=== PATIENT | female | born 1945 | race Caucasian/White ===

== ENCOUNTER 2017-12-26 09:56 | Emergency (ER) | payer MEDICARE, OTHER ==
[2017-12-26 09:56] VITALS: BMI 25.2
[2017-12-26 10:05] VITALS: BP 167/74; PULSE 69; RESP 18; TEMP 98.2; O2SAT 96
--- NOTE | 2017-12-26 10:40 | C.PDOC ---
History Of Present Illness <Tricia Dayperla Mariah - Last Filed: 12/26/17 11:13> <Vincenzo Sheridan DO - Last Filed: 12/26/17 18:02> CC: Right mid-back pain Patient is a 72 year old female with past medical history of anxiety, Arthritis, Gastritis, HTN, Kidney Stones, Migraine, who presents to the ED with complaints of right mid-back pain after she suffered a fall while going down the stairs to go grab her mails. Patient states that she took tramadol and motrin after the incident, which provided relief. Patient denies any other injury after the fall such as head injury. Patient was oriented to person, place and time post fall. (Shayne Day) History Per: Patient History/Exam Limitations: no limitations Onset/Duration Of Symptoms: Hrs Current Symptoms Are (Timing): Still Present Severity: Moderate Pain Scale Rating Of: 6 Location: Right mid-back pain Quality: Achy Additional History Per: Patient <Tricia Dayperla Mariah - Last Filed: 12/26/17 11:13> <Vincenzo Sheridan DO - Last Filed: 12/26/17 18:02> Time Seen by Provider: 12/26/17 10:10 Chief Complaint (Nursing): Back Pain Past Medical History - Medical History PMH: Anxiety, Arthritis, Gastritis, Gall Bladder Disease, HTN, Kidney Stones, Migraine, Chronic Kidney Disease Surgical History: Appendectomy, Cholecystectomy Family History: States: No Known Family Hx - Social History Hx Tobacco Use: No Hx Alcohol Use: No Hx Substance Use: No <ShayTriciaperla Lemus - Last Filed: 12/26/17 11:13> Vital Signs: Last Vital Signs Temp 98.2 F 12/26/17 10:06 Pulse 69 12/26/17 10:06 Resp 18 12/26/17 10:06 BP 167/74 H 12/26/17 10:06 Pulse Ox 96 12/26/17 11:20 - [facility] Procedures CYSTOSCOPY NEC (12/19/13) INJECT/INFUSE NEC (03/14/13) LAPAROSCOPIC CHOLECYSTECTOMY (07/20/14) OTHER LOCAL DESTRUC SKIN (03/17/13) OTHER SKIN & SUBQ I D (03/17/13) URETERAL CATHETERIZATION (12/19/13) URETHRAL DILATION (11/10/13) Review Of Systems Constitutional: Negative for: Fever, Chills, Weakness Eyes: Negative for: Pain, Vision Change ENT: Negative for: Ear Pain Cardiovascular: Negative for: Chest Pain, Palpitations, Orthopnea Respiratory: Negative for: Shortness of Breath Gastrointestinal: Negative for: Nausea, Vomiting, Abdominal Pain Genitourinary: Negative for: Dysuria, Frequency, Hematuria Musculoskeletal: Positive for: Back Pain. Negative for: Neck Pain, Shoulder Pain, Arm Pain Neurological: Negative for: Weakness, Numbness, Confusion, Dizziness <Shayne Day - Last Filed: 12/26/17 11:13> Physical Exam - Physical Exam Appears: Well Skin: Normal Color Head: Atraumatic, Normacephalic, No Tenderness, No Swelling, No Abrasion, No Laceration Eye(s): bilateral: Normal Inspection, EOMI Oral Mucosa: Moist Neck: Normal, Normal ROM Cardiovascular: Rhythm Regular Respiratory: Normal Breath Sounds Gastrointestinal/Abdominal: Normal Exam, Bowel Sounds, Soft, No Tenderness Back: No CVA Tenderness ( T5-T9 paraspinal tenderness ), Muscle Spasm, Paraspinal Tenderness, No Straight Leg Raising, Other (T7- T11) Extremity: Normal ROM, No Tenderness, No Pedal Edema, No Calf Tenderness Extremity: Bilateral: Atraumatic Neurological/Psych: Oriented x3, Normal Speech, Normal Cognition, Normal Cranial Nerves, Normal Sensation <Shayne Day - Last Filed: 12/26/17 11:13> ED Course And Treatment O2 Sat by Pulse Oximetry: 96 <Shayne Day - Last Filed: 12/26/17 11:13> Medical Decision Making <Shayne Day - Last Filed: 12/26/17 11:13> <Vincenzo Sheridan DO - Last Filed: 12/26/17 18:02> Medical Decision Making: Right Lumbar Spine X-ray: No acute fracture, spondylolysis or spondylolisthesis. Multilevel degenerative disc disease, worse at L5-S1.There is normal alignment of the lumbar vertebral bodies. There is normal lumbar lordosis. There is no acute fracture, spondylolysis or spondylolisthesis. There is diffuse bone demineralization. There is mild multilevel degenerative disc disease with anterior osteophytes, reduced disc heights and multilevel facet arthropathy, worse at L5-S1. Right Hip/Pelvis X-ray: The pelvic ring is intact. There is no acute displaced fracture or bone destruction. Bone alignment is normal. There is diffuse bone demineralization. There is mild degenerative osteoarthrosis in the sacroiliac joints. There are multiple phleboliths in the pelvis. No acute displaced fracture or dislocation. Please note occult fractures cannot be excluded on plain radiographs. If there is a persistent clinical concern, an MRI of the hip may be performed for further evaluation. (Shayne Day) Disposition Discussed With : Vincenzo Sheridan DO - Disposition Disposition Time: 11:15 <Shayne Day - Last Filed: 12/26/17 11:13> - Disposition Disposition Time: 11:05 <Vincenzo Sheridan DO - Last Filed: 12/26/17 18:02> - Disposition Referrals: [facility] Ronn Garber, [Non-Staff] - Disposition: HOME/ ROUTINE Condition: GOOD Additional Instructions: Please follow up with your PMD, Dr. Bond within a week Instructions: Low Back Pain in Adults Forms: [facility] (Slovak), General Discharge Instructions - Clinical Impression Clinical Impression: Low back strain, Lumbar sprain, Low back pain - PA / POWER HAMMER OPERATOR / Resident Statement DIOGO has reviewed & agrees with the documentation as recorded. DIOGO has examined the patient and agrees with the treatment plan. <Vincenzo Sheridan DO - Last Filed: 12/26/17 18:02>
--- NOTE | 2017-12-26 11:05 | RAD ---
Date of service: 12/26/2017 PROCEDURE: Radiographs of the Lumbar Spine. HISTORY: Status post fall COMPARISON: No prior. FINDINGS: BONES: There is normal alignment of the lumbar vertebral bodies. There is normal lumbar lordosis. There is no acute fracture, spondylolysis or spondylolisthesis. There is diffuse bone demineralization. DISC SPACES: There is mild multilevel degenerative disc disease with anterior osteophytes, reduced disc heights and multilevel facet arthropathy, worse at L5-S1. OTHER FINDINGS: There are atherosclerotic calcifications in the abdominal aorta. There are no pathologic soft tissue calcifications. Both sacroiliac joints are normal. IMPRESSION: No acute fracture, spondylolysis or spondylolisthesis. Multilevel degenerative disc disease, worse at L5-S1.
--- NOTE | 2017-12-26 11:06 | RAD ---
PROCEDURE: Right Hip Radiographs. HISTORY: Status post fall, R/O fracture COMPARISON: None. FINDINGS: BONES: The pelvic ring is intact. There is no acute displaced fracture or bone destruction. Bone alignment is normal. There is diffuse bone demineralization. JOINTS: The hip joint spaces are preserved. SOFT TISSUES: Normal. OTHER FINDINGS: There is mild degenerative osteoarthrosis in the sacroiliac joints. There are multiple phleboliths in the pelvis. IMPRESSION: No acute displaced fracture or dislocation. Please note occult fractures cannot be excluded on plain radiographs. If there is a persistent clinical concern, an MRI of the hip may be performed for further evaluation.
== END 2017-12-26 11:19 | disposition home or self-care (01) ==
LOC: C.ER 09:56
DX: S33.5XXA Sprain of ligaments of lumbar spine, initial encounter (principal); S39.012A Strain of muscle, fascia and tendon of lower back, initial encounter; W10.9XXA Fall (on) (from) unspecified stairs and steps, initial encounter; M54.5 Low back pain; I12.9 Hypertensive chronic kidney disease with stage 1 through stage 4 chronic kidney disease, or unspecified chronic kidney disease; N18.9 Chronic kidney disease, unspecified

== ENCOUNTER 2018-03-12 07:55 | Day surgery (SDC) | payer MEDICARE, OTHER ==
[2018-03-08 08:24] VITALS: BMI 22.1
[2018-03-12] MEDS ORDERED: Absorbable Gelatin Sponge Size 12-7 ONE (09:37)
[2018-03-12] MEDS ORDERED: Midazolam 2 MG/2 ML VIAL ONE (10:10)
[2018-03-12] MEDS ORDERED: Propofol 10 mg/ml Inj (20 ML) ONE (10:10)
--- NOTE | 2018-03-12 10:37 | CP.SDSHP ---
Same Day Surgery H & P - History Proposed Procedure: CT guided pelvic mass biopsy Pre-Op Diagnosis: Left pelvic mass, lymphadenopathy - Allergies Allergies: Allergies Gadolinium-Containing Contrast Medi Allergy (Severe, Verified 12/26/17 10:09) ANAPHYLAXIS Iodinated Contrast- Oral and IV Dye [Iodinated Contrast Media - IV Dye] Allergy (Severe, Verified 12/26/17 10:09) ANAPHYLAXIS - Physical Exam Mental Status: Alert & Oriented x3 - Impression Impression: Ct showed a large mass along the left iliac. Plan CT guided biopsy. Informed consent obtained. Pt. Evaluated Today:Candidate for Anesthesia & Procedure: Yes (ASA 3 Malampati 3) - Date & Time Date: 03/12/18 Time: 10:00 Short Stay Discharge - Short Stay Discharge Admitting Diagnosis/Reason for Visit: DX:R59.0 Disposition: HOME/ ROUTINE
--- NOTE | 2018-03-12 10:41 | PCM.SURG1 ---
Surgeon's Initial Post Op Note - Surgeon's Notes Surgeon: Octavio Cavazos MD Plant Pathology Teacher: None Type of Anesthesia: IV Sedation Pre-Operative Diagnosis: pelvic mass Operative Findings: CT showed a large left pelvic mass Post-Operative Diagnosis: pelvic mass Operation Performed: CT guided core biopdy of left pelvic mass. Specimen/Specimens Removed: 18 g core x4 Estimated Blood Loss: EBL {In ML}: 2 Blood Products Given: N/A Drains Used: No Drains Post-Op Condition: Good Date of Surgery/Procedure: 03/12/18 Time of Surgery/Procedure: 10:35
--- NOTE | 2018-03-12 12:36 | CT ---
PROCEDURE: < Date of procedure: 03/12/2018 Procedure: 1. CT-guided biopsy of left pelvic mass. 2. CT guidance for procedure, [address] Radiation: 375.55 MGy-cm Medications: The patient sedated by the anesthesiologist with IV sedation, 1 percent lidocaine HISTORY: Patient with enlarged left pelvic mass. TECHNIQUE: Following informed consent and procedure time-out, the patient was placed supine e on the CT table and noncontrast CT scan was performed. The non contrast CT scan confirmed the large mass along the left iliac. A skin localizer was placed on patient's lower abdomen and repeat CT scan performed. Her abdomen was marked, prepped, and draped in the usual sterile fashion. After the patient was sedated by the anesthesiologist and the skin anesthetized with 1% lidocaine, an 18 gauge core biopsy needle was advanced percutaneously under CT guidance towards large mass. Once the needle was confirmed to be within the lymph node, multiple core biopsy specimens were obtained and sent for routine pathology. The specimen was also sent for flow cytometry. A post biopsy CT scan showed no hematoma. IMPRESSION: CT-guided biopsy core biopsy of left pelvic mass. There were no immediate complications.
[2018-03-12 13:09] VITALS: RESP 17; TEMP 97.9
[2018-03-12 13:15] VITALS: BP 117/58; PULSE 64; O2SAT 98
== END 2018-03-12 12:15 | disposition home or self-care (01) ==
LOC: C.SPRAD 07:55
PROVIDERS: ATTEND Radiology Vascular & Interventional Radiology
DX: R14.0 Abdominal distension (gaseous) (principal)
CPT/HCPCS: 49180; 88305; J2250; J3010

== ENCOUNTER 2018-04-12 12:14 | Observation (INO) | payer MEDICARE, OTHER ==
[2018-04-12 12:24] VITALS: BMI 23.6
[2018-04-12 14:00] LABS: BASO % 0.3 % (0.0-2.0); EOS # 0.1 K/uL (0.0-0.7); EOS % 0.9 % (0.0-4.0); HEMOGLOBIN 7.3 g/dL (11.0-16.0); LYMPH # 1.4 K/uL (1.0-4.3); LYMPH % 15.3 % (20.0-40.0); MEAN CELL VOLUME 77.7 fL (81.0-99.0); MEAN CORPUSCULAR HEMOGLOBIN 24.9 pg (27.0-31.0); MONO # 0.6 K/uL (0.0-0.8); MONO % 6.9 % (0.0-10.0); NEUT % 76.6 % (50.0-75.0); NRBC % 0.1 % (0.0-2.0); RBC 2.95 Mil/uL (3.80-5.20); RED CELL DISTRIBUTION WIDTH 16.3 % (11.5-14.5); WHITE BLOOD COUNT 9.2 K/uL (4.8-10.8)
--- NOTE | 2018-04-12 14:00 | RAD ---
Date of service: 04/12/2018 HISTORY: SOB COMPARISON: Comparison chest 04/11/2018.. FINDINGS: LUNGS: Poor inspiration with low lung volumes, crowded bronchovascular markings and mild bibasilar atelectasis. Redemonstrated is a calcified granuloma right mid-lower lung field unchanged.. PLEURA: No significant pleural effusion identified, no pneumothorax apparent. CARDIOVASCULAR: Minor aortic atherosclerotic calcification present. Cardiomegaly. No pulmonary vascular congestion. OSSEOUS STRUCTURES: No significant abnormalities. VISUALIZED UPPER ABDOMEN: Normal. OTHER FINDINGS: None. IMPRESSION: Poor inspiration with low lung volumes, crowded bronchovascular markings and mild bibasilar atelectasis. Redemonstrated is a calcified granuloma right mid-lower lung field unchanged..
[2018-04-12 14:04] LABS: ALB/GLOB RATIO 0.8 (1.0-2.1); ALBUMIN 3.6 g/dL (3.5-5.0); ALT/SGPT 12 U/L (9-52); AST/SGOT 15 U/L (14-36); BLOOD UREA NITROGEN 20 mg/dL (7-17); CALCIUM 8.9 mg/dl (8.6-10.4); GFR NON-AFRICAN AMERICAN > 60
[2018-04-12 14:08] LABS: INR 1.4; PROTHROMBIN TIME 15.4 SECONDS (9.7-12.2)
[2018-04-12 14:09] LABS: B-TYPE NATRIURETIC PEPTIDE 561 pg/mL (0-900)
--- NOTE | 2018-04-12 14:19 | C.PDOC ---
History Of Present Illness 72 y/o female referred to the ED by Dr. Bond for abnormal outpatient labs showing hemoglobin of 7.4. Patient has underlying cancer with acute on chronic anemia. Dr. Bond requesting blood transfusions, [address] Todd and Dr. Ileana bucio following patient. No other complaints offered at this time. Time Seen by Provider: 04/12/18 13:07 Chief Complaint (Nursing): Abnormal Labs History Per: Patient History/Exam Limitations: no limitations Additional History Per: Prior Records Past Medical History Reviewed: Historical Data, Nursing Documentation, Vital Signs Vital Signs: Last Vital Signs Temp 98.6 F 04/12/18 12:25 Pulse 97 H 04/12/18 12:25 Resp 16 04/12/18 12:25 BP 144/75 04/12/18 12:25 Pulse Ox 95 04/12/18 12:25 - Medical History PMH: Anemia, Anxiety, Arthritis, Gastritis, Gall Bladder Disease, HTN, Kidney Stones, Migraine, Chronic Kidney Disease Surgical History: Appendectomy, Cholecystectomy, Endoscopy - [facility] Procedures CYSTOSCOPY NEC (12/19/13) INJECT/INFUSE NEC (03/14/13) LAPAROSCOPIC CHOLECYSTECTOMY (07/20/14) OTHER LOCAL DESTRUC SKIN (03/17/13) OTHER SKIN & SUBQ I D (03/17/13) URETERAL CATHETERIZATION (12/19/13) URETHRAL DILATION (11/10/13) Family History: States: No Known Family Hx - Social History Hx Tobacco Use: No Hx Alcohol Use: No Hx Substance Use: No - Immunization History Hx Tetanus Toxoid Vaccination: No Hx Influenza Vaccination: No Hx Pneumococcal Vaccination: No Review Of Systems Constitutional: Negative for: Fever, Chills Cardiovascular: Negative for: Chest Pain Respiratory: Negative for: Shortness of Breath Neurological: Negative for: Headache Physical Exam - Physical Exam Appears: Non-toxic, No Acute Distress Skin: Dry, Pale Head: Atraumatic, Normacephalic Eye(s): bilateral: PERRL, EOMI, Conjunctiva Pale Nose: Normal Neck: Normal ROM Chest: Symmetrical Cardiovascular: Rhythm Regular, No Murmur Respiratory: Normal Breath Sounds, No Rales, No Rhonchi, No Wheezing Gastrointestinal/Abdominal: Soft, No Tenderness, No Distention Rectal: Normal Exam (+ normal appearing stool, no gross blood) Back: Normal Inspection Extremity: Bilateral: Atraumatic, Normal Color And Temperature, Normal ROM Neurological/Psych: Oriented x3 ED Course And Treatment - Laboratory Results Result Diagrams: 04/12/18 13:43 04/12/18 13:43 Lab Interpretation: Abnormal ECG: Interpreted By Me ECG Rhythm: Sinus Rhythm ECG Interpretation: Normal O2 Sat by Pulse Oximetry: 95 Pulse Ox Interpretation: Normal - Radiology CXR: Interpreted by Me CXR Interpretation: Yes: No Acute Disease Reevaluation Time: 14:47 Reassessment Condition: Unchanged - Physician Consult Information Outcome Of Conversation: 1430: d/w Dr. Liu- HOspitalist covering pt's for Dr. Spencer Bond ok to admit. Medical Decision Making Medical Decision Making: Initial Plan: --EKG --Repeat labs --Chest x-ray --Urinalysis --Occult stool Impression: acute on chronic anemia hgb 7.3 for blood tx overnight per Dr. Bond- PMD- Disposition Doctor Will See Patient In The: Hospital Counseled Patient/Family Regarding: Studies Performed, Diagnosis - Disposition Disposition: HOSPITALIZED Disposition Time: 14:48 Condition: GOOD - Clinical Impression Clinical Impression: Anemia - Scribe Statement The provider has reviewed the documentation as recorded by the Beatriz Hameed Provider Attestation: All medical record entries made by the Beatriz were at my direction and personally dictated by me. I have reviewed the chart and agree that the record accurately reflects my personal performance of the history, physical exam, medical decision making, and the department course for this patient. I have also personally directed, reviewed, and agree with the discharge instructions and disposition.
[2018-04-12 14:22] LABS: SQUAMOUS EPITHIAL 4 /hpf (0-5); URINE BACTERIA OCC (<OCC); URINE BILIRUBIN NEGATIVE (NEGATIVE); URINE BLOOD NEGATIVE (NEGATIVE); URINE CLARITY Hazy (Clear); URINE COLOR Yellow (YELLOW); URINE GLUCOSE (UA) NORMAL (Normal); URINE LEUKOCYTE ESTERASE 2+ Leu/uL (Negative); URINE PROTEIN 1+ mg/dL (NEGATIVE)
[2018-04-12 16:04] VITALS: RESP 20
[2018-04-12] MEDS ORDERED: Tramadol 25 mg PO PRN ×2 (16:14→16:45)
--- NOTE | 2018-04-12 16:19 | CP.PCM.HP ---
History of Present Illness - History of Present Illness History of Present Illness: PGY-1 History and Physical for Dr. Liu's service CC: "Doctor sent me" HPI: Patient is 72 year old female with PMH of CKD, anxiety, migraine, gastritis, HTN, kidney stones, skin cancer was admitted to [facility] for anemia. Patient was referred to [facility] after she visited Dr. Bond for blood work with Hgb of 7.3. Dr. Bond wanted the patient to come to hospital to receive blood transfusion. Patient is pending placement of portacath for treatment of her Hodgkin's lymphoma by Dr. Todd. Patient denies any fever, chest pain, shortness of breath, n/v, diarrhea, hemoptysis, hematuria, hematochezia/melena or dysuria. PMH: CKD, anxiety, migraine, gastritis, HTN, kidney stones, skin cancer PSH: cholecystectomy, appendectomy ALL: Contrast Social: No ETOH, no illicit drugs, no smoking PMD: Dr. Bond Meds: See [facility] Oncologist: Dr. Todd - Hodgkin's lymphoma ; Dr. Yen - Skin cancer Code: Full status Present on Admission - Present on Admission Any Indicators Present on Admission: No Review of Systems - Review of Systems Review of Systems: 12 point ROS obtained and noted. Past Patient History - Past Medical History & Family History Past Medical History?: Yes - Past Social History Smoking Status: Former Smoker - CARDIAC Hx Hypertension: Yes - PULMONARY Hx Respiratory Disorders: No - NEUROLOGICAL Hx Migraine: Yes - HEENT Hx HEENT Problems: Yes Hx Glaucoma: Yes - RENAL Hx Chronic Kidney Disease: Yes Hx Kidney Stones: Yes - ENDOCRINE/METABOLIC Hx Endocrine Disorders: No - HEMATOLOGICAL/ONCOLOGICAL Hx Anemia: Yes - INTEGUMENTARY Hx Dermatological Problems: Yes (SEE COMMENT) Other/Comment: SKIN CANcer - MUSCULOSKELETAL/RHEUMATOLOGICAL Hx Arthritis: Yes - GASTROINTESTINAL Hx Gall Bladder Disease: Yes Hx Gastritis: Yes - GENITOURINARY/GYNECOLOGICAL Hx Genitourinary Disorders: Yes Hx Urinary Tract Infection: Yes Other/Comment: FIBRIODS. BLADDER LIFT - PSYCHIATRIC Hx Anxiety: Yes Hx Substance Use: No - SURGICAL HISTORY Hx Appendectomy: Yes Hx Cholecystectomy: Yes - ANESTHESIA Hx Anesthesia: Yes Hx Anesthesia Reactions: No Hx Malignant Hyperthermia: No Meds Allergies/Adverse Reactions: Allergies Allergy/AdvReac Type Severity Reaction Status Date / Time Gadolinium-Containing Allergy Severe ANAPHYLAXIS Verified 04/12/18 12:23 Contrast Medi Iodinated Contrast- Oral and Allergy Severe ANAPHYLAXIS Verified 04/12/18 12:23 IV Dye [Iodinated Contrast Media - IV Dye] Physical Exam - Constitutional Appears: Non-toxic, No Acute Distress - Head Exam Head Exam: NORMAL INSPECTION, NORMOCEPHALIC - Eye Exam Eye Exam: EOMI, Normal appearance. absent: Nystagmus, Scleral icterus - Respiratory Exam Respiratory Exam: Clear to Auscultation Bilateral, NORMAL BREATHING PATTERN. absent: Rales, Rhonchi, Wheezes - Cardiovascular Exam Cardiovascular Exam: REGULAR RHYTHM, +S1, +S2. absent: Tachycardia - GI/Abdominal Exam GI & Abdominal Exam: Normal Bowel Sounds, Soft. absent: Diminished Bowel Sound s, Distended, Firm, Guarding, Tenderness - Extremities Exam Extremities exam: Positive for: normal inspection. Negative for: calf tenderness, pedal edema - Neurological Exam Neurological exam: Alert, Oriented x3 - Psychiatric Exam Psychiatric exam: Normal Affect, Normal Mood - Skin Skin Exam: Dry, Normal Color - Additional Findings Additional findings: ulcerative lesions on bilateral arms 2/2 skin cancer Results - Vital Signs Recent Vital Signs: Last Vital Signs Temp 98.9 F 04/12/18 15:30 Pulse 85 04/12/18 15:30 Resp 20 04/12/18 15:30 BP 157/73 H 04/12/18 15:30 Pulse Ox 97 04/12/18 15:30 - Labs Result Diagrams: 04/12/18 13:43 04/12/18 13:43 Labs: Laboratory Results - last 24 hr 04/12/18 04/12/18 04/12/18 13:43 13:43 13:43 WBC 9.2 RBC 2.95 L Hgb 7.3 L Hct 22.9 L MCV 77.7 L MCH 24.9 L MCHC 32.0 L RDW 16.3 H Plt Count 421 H MPV 7.0 L Neut % (Auto) 76.6 H Lymph % (Auto) 15.3 L [place] % (Auto) 6.9 Eos % (Auto) 0.9 Baso % (Auto) 0.3 Neut # (Auto) 7.0 Lymph # (Auto) 1.4 [place] # (Auto) 0.6 Eos # (Auto) 0.1 Baso # (Auto) 0.0 PT 15.4 H INR 1.4 APTT 36 H Sodium 138 Potassium 3.7 Chloride 98 Carbon Dioxide 29 Anion Gap 15 BUN 20 H Creatinine 0.9 Est GFR ( Amer) > 60 Est GFR (Non-Af Amer) > 60 Random Glucose 127 H Calcium 8.9 Total Bilirubin 0.4 AST 15 ALT 12 Alkaline Phosphatase 101 Troponin I < 0.0120 NT-Pro-B Natriuret Pep 561 Total Protein 8.1 Albumin 3.6 Globulin 4.5 H Albumin/Globulin Ratio 0.8 L Urine Color Urine Clarity Urine pH Ur Specific [place] Urine Protein Urine Glucose (UA) Urine Ketones Urine Blood Urine Nitrate Urine Bilirubin Urine Urobilinogen Ur Leukocyte Esterase Urine WBC (Auto) Urine RBC (Auto) Ur Squamous Epith Cells Urine Bacteria Stool Occult Blood Blood Type Blood Type Confirm Antibody Screen 04/12/18 04/12/18 04/12/18 13:43 14:01 15:11 WBC RBC Hgb Hct MCV MCH MCHC RDW Plt Count MPV Neut % (Auto) Lymph % (Auto) [place] % (Auto) Eos % (Auto) Baso % (Auto) Neut # (Auto) Lymph # (Auto) [place] # (Auto) Eos # (Auto) Baso # (Auto) PT INR APTT Sodium Potassium Chloride Carbon Dioxide Anion Gap BUN Creatinine Est GFR ( Amer) Est GFR (Non-Af Amer) Random Glucose Calcium Total Bilirubin AST ALT Alkaline Phosphatase Troponin I NT-Pro-B Natriuret Pep Total Protein Albumin Globulin Albumin/Globulin Ratio Urine Color Yellow Urine Clarity Hazy Urine pH 5.0 Ur Specific [place] 1.020 Urine Protein 1+ H Urine Glucose (UA) Normal Urine Ketones Negative Urine Blood Negative Urine Nitrate Negative Urine Bilirubin Negative Urine Urobilinogen 4.0 H Ur Leukocyte Esterase 2+ H Urine WBC (Auto) 74 H Urine RBC (Auto) 3 Ur Squamous Epith Cells 4 Urine Bacteria Occ H Stool Occult Blood Negative Blood Type A POSITIVE Blood Type Confirm A POSITIVE Antibody Screen Negative Assessment & Plan - Assessment and Plan (Free Text) Assessment: 72 year old female with PMH of CKD, anxiety, migraine, gastritis, HTN, kidney stones, skin cancer with anemia pending portacath placement for Hodgkin's lymphoma chemotherapy. Plan: Anemia No source of bleeding found; Patient states she never had colonoscopy in past Type and Cross 1 unit of pRBC Patient is asymptomatic and hemodynamically stable stool occult blood negative Hogdkin's lyphoma Outpatient portacath placement and treatment per Dr. Todd Skin Cancer Outpatient treatment with Dr. Yen Bactroban Cream Gastritis Protonix 40mg PO qd Arthritis Ultracet Anxiety Xanax 1mg PO qd HTN Exforge 10mg-320mg 1 tab PO qd Nebivolol 10mg po daily Osteoporosis Ergocalcefirol 98252 units q weekly Prophylaxis GI: Protonix DVT: SCDs Disposition: likely discharge tomorrow pending AM CBC Meño Valentin PGY-1 Medical Management discussed with Dr. Liu
[2018-04-12] MEDS: Pantoprazole 40 mg EC Tab PO SCH (17:04)
[2018-04-12] MEDS ORDERED: DiphenhydrAMINE 50 mg/ml Inj IVP PRN (21:32)
[2018-04-13 07:29] LABS: BASO % 0.3 % (0.0-2.0); EOS # 0.2 K/uL (0.0-0.7); LYMPH # 1.5 K/uL (1.0-4.3); LYMPH % 17.7 % (20.0-40.0); MEAN CORPUSCULAR HEMOGLOBIN 26.2 pg (27.0-31.0); MEAN CORPUSCULAR HGB CONC 32.8 g/dL (33.0-37.0); MEAN PLATELET VOLUME 7.1 fL (7.2-11.7); MONO # 0.7 K/uL (0.0-0.8); MONO % 7.8 % (0.0-10.0); NEUT # 6.1 K/uL (1.8-7.0); NEUT % 72.2 % (50.0-75.0); RBC 3.42 Mil/uL (3.80-5.20); WHITE BLOOD COUNT 8.5 K/uL (4.8-10.8)
[2018-04-13 07:30] VITALS: TEMP 98.6; O2SAT 95
[2018-04-13 07:31] LABS: MEAN CELL VOLUME 79.9 fL (81.0-99.0)
[2018-04-13] MEDS ORDERED: Influenza Virus Vaccine 45 mcg/0.5 ml Syr (36 months - 7 yrs) IM ONE (08:26)
[2018-04-13] MEDS ORDERED: Pneumococcal 23-Valent Vaccine IM ONE (08:26)
[2018-04-13] MEDS: Pantoprazole 40 mg EC Tab PO SCH (09:20)
[2018-04-13 10:40] VITALS: BP 159/71; PULSE 58
--- NOTE | 2018-04-13 12:48 | CP.PCM.DIS ---
<Elisabeth Toth - Last Filed: 04/13/18 15:20> Provider - Provider Date of Admission: 04/12/18 14:52 Attending physician: Olayinka Liu MD Time Spent in preparation of Discharge (in minutes): 40 Hospital Course - Lab Results Lab Results: Most Recent Lab Values WBC 8.5 K/uL (4.8-10.8) 04/13/18 07:08 RBC 3.42 Mil/uL (3.80-5.20) L 04/13/18 07:08 Hgb 9.0 g/dL (11.0-16.0) L 04/13/18 07:08 Hct 27.3 % (34.0-47.0) L 04/13/18 07:08 MCV 79.9 fL (81.0-99.0) L D 04/13/18 07:08 MCH 26.2 pg (27.0-31.0) L 04/13/18 07:08 MCHC 32.8 g/dL (33.0-37.0) L 04/13/18 07:08 RDW 16.0 % (11.5-14.5) H 04/13/18 07:08 Plt Count 352 K/uL (130-400) 04/13/18 07:08 MPV 7.1 fL (7.2-11.7) L 04/13/18 07:08 Neut % (Auto) 72.2 % (50.0-75.0) 04/13/18 07:08 Lymph % (Auto) 17.7 % (20.0-40.0) L 04/13/18 07:08 G[place]pie % (Auto) 7.8 % (0.0-10.0) 04/13/18 07:08 Eos % (Auto) 2.0 % (0.0-4.0) 04/13/18 07:08 Baso % (Auto) 0.3 % (0.0-2.0) 04/13/18 07:08 Neut # (Auto) 6.1 K/uL (1.8-7.0) 04/13/18 07:08 Lymph # (Auto) 1.5 K/uL (1.0-4.3) 04/13/18 07:08 Gillespie # (Auto) 0.7 K/uL (0.0-0.8) 04/13/18 07:08 Eos # (Auto) 0.2 K/uL (0.0-0.7) 04/13/18 07:08 Baso # (Auto) 0.0 K/uL (0.0-0.2) 04/13/18 07:08 PT 15.4 SECONDS (9.7-12.2) H 04/12/18 13:43 INR 1.4 04/12/18 13:43 APTT 36 SECONDS (21-34) H 04/12/18 13:43 Sodium 138 mmol/L (132-148) 04/12/18 13:43 Potassium 3.7 mmol/L (3.6-5.2) 04/12/18 13:43 Chloride 98 mmol/L (98-107) 04/12/18 13:43 Carbon Dioxide 29 mmol/L (22-30) 04/12/18 13:43 Anion Gap 15 (10-20) 04/12/18 13:43 BUN 20 mg/dL (7-17) H 04/12/18 13:43 Creatinine 0.9 mg/dL (0.7-1.2) 04/12/18 13:43 Est GFR ( Amer) > 60 04/12/18 13:43 Est GFR (Non-Af Amer) > 60 04/12/18 13:43 Random Glucose 127 mg/dL (65-105) H 04/12/18 13:43 Calcium 8.9 mg/dl (8.6-10.4) 04/12/18 13:43 Total Bilirubin 0.4 mg/dL (0.2-1.3) 04/12/18 13:43 AST 15 U/L (14-36) 04/12/18 13:43 ALT 12 U/L (9-52) 04/12/18 13:43 Alkaline Phosphatase 101 U/L (38-126) 04/12/18 13:43 Troponin I < 0.0120 ng/mL (0.00-0.120) 04/12/18 13:43 NT-Pro-B Natriuret Pep 561 pg/mL (0-900) 04/12/18 13:43 Total Protein 8.1 g/dL (6.3-8.3) 04/12/18 13:43 Albumin 3.6 g/dL (3.5-5.0) 04/12/18 13:43 Globulin 4.5 gm/dL (2.2-3.9) H 04/12/18 13:43 Albumin/Globulin Ratio 0.8 (1.0-2.1) L 04/12/18 13:43 Urine Color Yellow (YELLOW) 04/12/18 14:01 Urine Clarity Hazy (Clear) 04/12/18 14:01 Urine pH 5.0 (5.0-8.0) 04/12/18 14:01 Ur Specific [place] 1.020 (1.003-1.030) 04/12/18 14:01 Urine Protein 1+ mg/dL (NEGATIVE) H 04/12/18 14:01 Urine Glucose (UA) Normal mg/dL (Normal) 04/12/18 14:01 Urine Ketones Negative mg/dL (NEGATIVE) 04/12/18 14:01 Urine Blood Negative (NEGATIVE) 04/12/18 14:01 Urine Nitrate Negative (NEGATIVE) 04/12/18 14:01 Urine Bilirubin Negative (NEGATIVE) 04/12/18 14:01 Urine Urobilinogen 4.0 mg/dL (0.2-1.0) H 04/12/18 14:01 Ur Leukocyte Esterase 2+ Halima/uL (Negative) H 04/12/18 14:01 Urine WBC (Auto) 74 /hpf (0-5) H 04/12/18 14:01 Urine RBC (Auto) 3 /hpf (0-3) 04/12/18 14:01 Ur Squamous Epith Cells 4 /hpf (0-5) 04/12/18 14:01 Urine Bacteria Occ (<OCC) H 04/12/18 14:01 Stool Occult Blood Negative (NEGATIVE) 04/12/18 15:11 Blood Type A POSITIVE 04/12/18 13:43 Blood Type Confirm A POSITIVE 04/12/18 13:43 Antibody Screen Negative 04/12/18 13:43 - Hospital Course Hospital Course: CC: "Doctor sent me" HPI: Patient is 72 year old female with PMH of CKD, anxiety, migraine, gastritis, HTN, kidney stones, skin cancer was admitted to [facility] [place] for anemia. Patient was referred to [facility] [place] after she visited Dr. Bond for blood work with Hgb of 7.3. Dr. Bond wanted the patient to come to hospital to receive blood transfusion. Patient is pending placement of portacath for treatment of her Hodgkin's lymphoma by Dr. Todd. Patient denies any fever, chest pain, shortness of breath, n/v, diarrhea, hemoptysis, hematuria, hematochezia/melena or dysuria. PMH: CKD, anxiety, migraine, gastritis, HTN, kidney stones, skin cancer PSH: cholecystectomy, appendectomy ALL: Contrast Social: No ETOH, no illicit drugs, no smoking PMD: Dr. Bond Meds: See [facility] Oncologist: Dr. Todd - Hodgkin's lymphoma ; Dr. Yen - Skin cancer Code: Full status Hospital Course: Patient was sent to the hospital by PMD for a hemaglobin found to be 7.3. Patient was transfused 2 units of PRBC and hemaglobin increased to 9.0 Patient states she feels much better. Patient denies chest pain, shortness of breath, lightheaded, nausea, vomiting, dizziness, abdominal pain, fever, chills, dysuria or hematuria. Discussed with patient to follow up with PMD, Dr. Bond. Patient states she has an appointment scheduled for 04/15/18. This is a summary of the patient's hospital course. Please see EMR for full report. Discharge Exam - Head Exam Head Exam: NORMAL INSPECTION, NORMOCEPHALIC - Eye Exam Eye Exam: EOMI, Normal appearance - ENT Exam ENT Exam: Mucous Membranes Moist - Respiratory Exam Respiratory Exam: Clear to PA & Lateral, NORMAL BREATHING PATTERN - Cardiovascular Exam Cardiovascular Exam: REGULAR RHYTHM, +S1, +S2 - GI/Abdominal Exam GI & Abdominal Exam: Normal Bowel Sounds, Soft. absent: Tenderness - Extremities Exam Extremities exam: normal inspection - Neurological Exam Neurological exam: Alert, Oriented x3 - Psychiatric Exam Psychiatric exam: Normal Affect - Skin Skin Exam: Normal Color Discharge Plan - Follow Up Plan Condition: GOOD Disposition: HOME/ ROUTINE Instructions: Normocytic Normochromic Anemia, Normocytic Normochromic Anemia (DC) Additional Instructions: Please continue home medications. Please follow up with PMD, Dr. Bond. Please follow up with oncologist, Dr. Todd. Thank you and take care. <Nicanor Lunsford - Last Filed: 04/13/18 16:33> Provider - Provider Date of Admission: 04/12/18 14:52 Attending physician: Olayinka Liu MD Hospital Course - Lab Results Lab Results: Most Recent Lab Values WBC 8.5 K/uL (4.8-10.8) 04/13/18 07:08 RBC 3.42 Mil/uL (3.80-5.20) L 04/13/18 07:08 Hgb 9.0 g/dL (11.0-16.0) L 04/13/18 07:08 Hct 27.3 % (34.0-47.0) L 04/13/18 07:08 MCV 79.9 fL (81.0-99.0) L D 04/13/18 07:08 MCH 26.2 pg (27.0-31.0) L 04/13/18 07:08 MCHC 32.8 g/dL (33.0-37.0) L 04/13/18 07:08 RDW 16.0 % (11.5-14.5) H 04/13/18 07:08 Plt Count 352 K/uL (130-400) 04/13/18 07:08 MPV 7.1 fL (7.2-11.7) L 04/13/18 07:08 Neut % (Auto) 72.2 % (50.0-75.0) 04/13/18 07:08 Lymph % (Auto) 17.7 % (20.0-40.0) L 04/13/18 07:08 Gillespie % (Auto) 7.8 % (0.0-10.0) 04/13/18 07:08 Eos % (Auto) 2.0 % (0.0-4.0) 04/13/18 07:08 Baso % (Auto) 0.3 % (0.0-2.0) 04/13/18 07:08 Neut # (Auto) 6.1 K/uL (1.8-7.0) 04/13/18 07:08 Lymph # (Auto) 1.5 K/uL (1.0-4.3) 04/13/18 07:08 Gillespie # (Auto) 0.7 K/uL (0.0-0.8) 04/13/18 07:08 Eos # (Auto) 0.2 K/uL (0.0-0.7) 04/13/18 07:08 Baso # (Auto) 0.0 K/uL (0.0-0.2) 04/13/18 07:08 PT 15.4 SECONDS (9.7-12.2) H 04/12/18 13:43 INR 1.4 04/12/18 13:43 APTT 36 SECONDS (21-34) H 04/12/18 13:43 Sodium 138 mmol/L (132-148) 04/12/18 13:43 Potassium 3.7 mmol/L (3.6-5.2) 04/12/18 13:43 Chloride 98 mmol/L (98-107) 04/12/18 13:43 Carbon Dioxide 29 mmol/L (22-30) 04/12/18 13:43 Anion Gap 15 (10-20) 04/12/18 13:43 BUN 20 mg/dL (7-17) H 04/12/18 13:43 Creatinine 0.9 mg/dL (0.7-1.2) 04/12/18 13:43 Est GFR ( Amer) > 60 04/12/18 13:43 Est GFR (Non-Af Amer) > 60 04/12/18 13:43 Random Glucose 127 mg/dL (65-105) H 04/12/18 13:43 Calcium 8.9 mg/dl (8.6-10.4) 04/12/18 13:43 Total Bilirubin 0.4 mg/dL (0.2-1.3) 04/12/18 13:43 AST 15 U/L (14-36) 04/12/18 13:43 ALT 12 U/L (9-52) 04/12/18 13:43 Alkaline Phosphatase 101 U/L (38-126) 04/12/18 13:43 Troponin I < 0.0120 ng/mL (0.00-0.120) 04/12/18 13:43 NT-Pro-B Natriuret Pep 561 pg/mL (0-900) 04/12/18 13:43 Total Protein 8.1 g/dL (6.3-8.3) 04/12/18 13:43 Albumin 3.6 g/dL (3.5-5.0) 04/12/18 13:43 Globulin 4.5 gm/dL (2.2-3.9) H 04/12/18 13:43 Albumin/Globulin Ratio 0.8 (1.0-2.1) L 04/12/18 13:43 Urine Color Yellow (YELLOW) 04/12/18 14:01 Urine Clarity Hazy (Clear) 04/12/18 14:01 Urine pH 5.0 (5.0-8.0) 04/12/18 14:01 Ur Specific [place] 1.020 (1.003-1.030) 04/12/18 14:01 Urine Protein 1+ mg/dL (NEGATIVE) H 04/12/18 14:01 Urine Glucose (UA) Normal mg/dL (Normal) 04/12/18 14:01 Urine Ketones Negative mg/dL (NEGATIVE) 04/12/18 14:01 Urine Blood Negative (NEGATIVE) 04/12/18 14:01 Urine Nitrate Negative (NEGATIVE) 04/12/18 14:01 Urine Bilirubin Negative (NEGATIVE) 04/12/18 14:01 Urine Urobilinogen 4.0 mg/dL (0.2-1.0) H 04/12/18 14:01 Ur Leukocyte Esterase 2+ Halima/uL (Negative) H 04/12/18 14:01 Urine WBC (Auto) 74 /hpf (0-5) H 04/12/18 14:01 Urine RBC (Auto) 3 /hpf (0-3) 04/12/18 14:01 Ur Squamous Epith Cells 4 /hpf (0-5) 04/12/18 14:01 Urine Bacteria Occ (<OCC) H 04/12/18 14:01 Stool Occult Blood Negative (NEGATIVE) 04/12/18 15:11 Blood Type A POSITIVE 04/12/18 13:43 Blood Type Confirm A POSITIVE 04/12/18 13:43 Antibody Screen Negative 04/12/18 13:43 Attending/Attestation - Attestation I have personally seen and examined this patient.: Yes I have fully participated in the care of the patient.: Yes I have reviewed all pertinent clinical information, including history, physical exam and plan: Yes Notes (Text): 04/13/18 16:32 Medical attending: Patient was seen and examined by me. Agree with the above note by the resident Patient reports she feels well. Not in any pain or distress. She reported her breathing was also very well Denied palpitations, denied chest pain. As mentioned previously the patient has history of Hodkin Lymphoma and was sent in by [facility] physician for transfusion Nicanor Lunsford
[2018-04-19] MEDS ORDERED: Ergocalciferol 50,000 Intl Units Cap PO SCH (10:00)
== END 2018-04-13 14:09 | disposition home or self-care (01) ==
LOC: C.ER 12:14 → C.5S 14:52
PROVIDERS: ADMIT Internal Medicine; ATTEND Internal Medicine
DX: D64.9 Anemia, unspecified (principal); I12.9 Hypertensive chronic kidney disease with stage 1 through stage 4 chronic kidney disease, or unspecified chronic kidney disease; N18.9 Chronic kidney disease, unspecified; Z87.440 Personal history of urinary (tract) infections; Z87.442 Personal history of urinary calculi; Z87.891 Personal history of nicotine dependence; Z90.49 Acquired absence of other specified parts of digestive tract; Z85.828 Personal history of other malignant neoplasm of skin
CPT/HCPCS: 36415; 36430; 71045; 80053; 81001; 83880; 84484; 85025; 85610; 85730; 86850; 86900; 86920; 99284; G0328; G0378; P9051

== ENCOUNTER 2018-04-17 08:09 | Day surgery (SDC) | payer MEDICARE, OTHER ==
[2018-04-17] MEDS ORDERED: ceFAZolin IV 1 gm in Dextrose 2 GM/100 ML BAG IVPB ONE (10:56)
[2018-04-17] MEDS ORDERED: Bupivacaine 0.25% 20 ML INJ IJ ONE (10:57)
[2018-04-17] MEDS ORDERED: HEPARIN-NS 5,000 UNITS/500 ML 5,000 UNIT/500 ML BAG IV ONE (10:57)
[2018-04-17] MEDS ORDERED: Sodium Chloride 0.9% 20 ML IV ONE (11:03)
[2018-04-17] MEDS ORDERED: Lidocaine/Epinephrine 1% 1:100000 10 ML IJ ONE (11:12)
[2018-04-17] MEDS ORDERED: Propofol 10 mg/ml Inj (20 ML) ONE (11:29)
[2018-04-17] MEDS ORDERED: HYDROmorphone 0.5 mg/0.5 ml ISec IVP PRN (12:10)
--- NOTE | 2018-04-17 12:59 | PCM.SURG1 ---
Surgeon's Initial Post Op Note - Surgeon's Notes Surgeon: Domingo Body Work Auto Trimmer: [id number] Type of Anesthesia: General LMA, Local Pre-Operative Diagnosis: Hodgkins Lymphoma Operative Findings: Good placement of port confirmed by flouro Post-Operative Diagnosis: Hodgkins Lymphoma Operation Performed: Right internal jugular double lumen portacath placement Specimen/Specimens Removed: n/a Estimated Blood Loss: EBL {In ML}: 10 Blood Products Given: N/A Drains Used: No Drains Post-Op Condition: Good Date of Surgery/Procedure: 04/17/18 Time of Surgery/Procedure: 11:30
--- NOTE | 2018-04-17 13:38 | RAD ---
Date of service: 04/17/2018 HISTORY: Status post Port-A-Cath placement COMPARISON: Comparison chest dated 04/12/2018. FINDINGS: Interval placement right IJ Port-A-Cath with tip in the SVC. LUNGS: Suspect minor bibasilar. PLEURA: No significant pleural effusion identified, no p atelectasis. Neumothorax apparent. CARDIOVASCULAR: Mild aortic atherosclerotic calcification present. Heart appears mildly enlarged.. No pulmonary vascular congestion. OSSEOUS STRUCTURES: No significant abnormalities. VISUALIZED UPPER ABDOMEN: Normal. OTHER FINDINGS: None. IMPRESSION: Mild bibasilar atelectasis. Interval placement right-sided Port-A-Cath with tip in the SVC. No evidence of pneumothorax
--- NOTE | 2018-04-17 13:52 | RAD ---
Date of service: 04/17/2018 PROCEDURE: Intraoperative Fluoroscopy. HISTORY: OVARIAN MASS FINDINGS: Fluoroscopic assistance was provided. Fluoroscopy time = 12.4 sec. Radiation dose = 0.78 mGy. Please refer to the operative report from DIGNA Lopez.
[2018-04-17 14:40] VITALS: RESP 18; TEMP 97.6
[2018-04-17 15:08] VITALS: BP 138/54; PULSE 62; O2SAT 97
--- NOTE | 2018-04-29 06:06 | OP ---
PROCEDURE DATE: 04/17/2018 PREOPERATIVE DIAGNOSES: 1. Ovarian mass. 2. The patient needs chemotherapy. POSTOPERATIVE DIAGNOSES: 1. Ovarian mass. 2. The patient needs chemotherapy. PROCEDURES DONE: 1. Right internal jugular Port-A-Cath insertion. 2. Ultrasound-guided venous access. 3. Intraoperative fluoroscopy. SURGEON: Dennys Lane MD SUPERINTENDENT [employer]: Rafy Segura DO, PGY-4 resident ANESTHESIA: General anesthesia with LMA. ESTIMATED BLOOD LOSS: Around 10 mL. DRAINS: None. PATHOLOGY: None. COMPLICATIONS: None. INTRAOPERATIVE FINDINGS: The patient had a patent right IJ. DESCRIPTION OF PROCEDURE: On intraoperative steps, this is a 72-year-old female who was diagnosed with ovarian mass and the patient needed a chemotherapy port. The patient was consented for the chemotherapy port. She was brought to the OR, placed supine on the operating table. After induction of the anesthesia, the right side of the neck was prepped and draped in the usual sterile fashion and under ultrasound guidance, the right IJ venous access was done. elliptical incision was made. The pouch was created. The catheter was done on the pouch over the right IJ insertion site, and the catheter was placed in the dilated sheath. The intraoperative fluoroscopy confirmation was done. The catheter was connected to the port, and the port was secured to the floor of the pouch. The port was accessed intraoperatively, and it was functioning without any blockage. Now, the heparin flush was flushed and the port wound was closed in two layers, the subcu with 2-0 Vicryl and the skin with a 4-0 Monocryl. The port was secured to the floor with a 2-0 Vicryl suture. The straight heparin was injected in the port to prevent the blockage and after that, a dry sterile dressing was applied. The right IJ insertion site was also closed with a 4-0 Monocryl. The patient was reversed from anesthesia, sent to the postanesthesia care unit in stable condition. Dennys Lane MD
== END 2018-04-17 15:05 | disposition home or self-care (01) ==
LOC: C.SDS 08:09
PROVIDERS: ATTEND Surgery Surgical Critical Care
DX: C81.90 Hodgkin lymphoma, unspecified, unspecified site (principal); N83.9 Noninflammatory disorder of ovary, fallopian tube and broad ligament, unspecified
CPT/HCPCS: 36561; 71045; 77001; C1788; J0690; J1644; J2704; J3010; J7040